=== PATIENT | female | born 1995 | race Two or more races ===

== ENCOUNTER 2024-03-31 03:34 | Emergency (ER) | payer MEDICAID ==
[~2024-03-31] VITALS: Ht 162.6 cm; Wt 74.4 kg
[2024-03-31] MEDS ORDERED: BACDST PO (04:12)
[2024-03-31] MEDS ORDERED: IBUP1TAB5 PO (04:12)
[2024-03-31] MEDS ORDERED: CLIN1CAP70 PO (04:12)
[2024-03-31] MEDS: CLINDAMYCIN HCL 150 MG CAP PO ONE (05:25)
[2024-03-31] MEDS: SULFAMETHOX W/TRIMETH(800/160MG) DS TAB PO ONE (05:25)
[2024-03-31 06:09] VITALS: BP 132/72; PULSE 89; RESP 20; TEMP 98.5
[2024-03-31 06:10] VITALS: O2SAT 98
== END 2024-03-31 06:18 | disposition home or self-care (01) ==
LOC: ER 03:34
DX: L02.31 Cutaneous abscess of buttock (principal); Z88.0 Allergy status to penicillin